=== PATIENT | male | born 1940 | race Caucasian/White ===

== ENCOUNTER 2019-01-04 15:56 | Inpatient (IN) | payer OTHER ==
[~2019-01-04] VITALS: Ht 170.2 cm; Wt 90.7 kg
[2019-01-04 15:57] VITALS: BP 108/53
--- NOTE | 2019-01-04 17:10 | NUR ---
AT THIS TIME, RN CALLED AP ALMENDAREZ, SISTER AND DPPADMA, AND RECIEVED AUTHORIZATION TO TREAT PT. DPOA STATED "WHATEVER YOU NEED TO DO, YOU HAVE MY PERMISSION"
[2019-01-04 17:30] LABS: URINE BILIRUBIN NEGATIVE (Negative); URINE BLOOD TRACE (Negative); URINE CLARITY CLEAR; URINE COLOR YELLOW; URINE GLUCOSE-RANDOM* NEGATIVE (Negative); URINE KETONES NEGATIVE (Negative); URINE LEUKOCYTES-REFLEX NEGATIVE (Negative); URINE NITRITE-REFLEX NEGATIVE (Negative); URINE PROTEIN (DIPSTICK) NEGATIVE (Negative); URINE SPECIFIC GRAVITY 1.015 (1.005-1.035); URINE UROBILINOGEN 0.2 E.U./dl (0.2-1.0)
--- NOTE | 2019-01-04 17:38 | NUR ---
DPOA CALLED AGAIN TO TALK WITH PT, TO SEE IF COULD HELP PT UNDERSTAND WHY TESTING AND LINE/LABS ARE NEEDED. PT STILL REFUSING. RN TALKED WITH DPOA ABOUT POSSIBLY USING A SEDATIVE TO CALM PT AND CONTINUE CARE, DPOA STATED "ANYTHING YOU NEED TO DO IS FINE".
[2019-01-04 17:55] LABS: AMP/METHAMP Negative (Negative); BARBITURATES Negative (Negative); BENZODIAZEPINES Negative (Negative); COCAINE Negative (Negative); METHADONE Negative (Negative); OPIATES Negative (Negative); PCP Negative (Negative)
[2019-01-04 20:25] LABS: HEMATOCRIT 37.8 % (42.0-52.0); HEMOGLOBIN 12.7 gm/dL (14.0-18.0); MCH 30.1 pg (26.0-34.0); MCHC 33.5 g/dL (28.0-37.0); MCV 89.8 fL (80.0-100.0); PLATELET COUNT 210 thou/uL (150-400); RBC 4.21 mil/uL (4.50-6.00); RDW 14.3 % (10.5-14.5)
[2019-01-04 20:58] LABS: ANION GAP 10 mmol/L (7-16); BUN 37 mg/dL (7-18); CALCIUM 9.2 mg/dL (8.5-10.1); CHLORIDE 102 mmol/L (98-107); CO2 31 mmol/L (21-32); CREATININE 1.3 mg/dL (0.7-1.3); GLUCOSE 114 mg/dL (74-106); POTASSIUM 4.6 mmol/L (3.5-5.1); SODIUM 143 mmol/L (136-145)
[2019-01-04 21:04] LABS: ABSOLUTE NEUTROPHILS 9.6 thou/uL (1.4-8.2); ATYPICAL LYMPHS 4 %; PLATELET ESTIMATE NORMAL
[2019-01-04 21:06] LABS: MAGNESIUM 2.1 mg/dL (1.8-2.4); SGOT 19 U/L (15-37); SGPT 24 U/L (30-65); TOTAL BILIRUBIN 0.3 mg/dL (<0.1-1.0); TOTAL PROTEIN 7.7 g/dL (6.4-8.2); TROPONIN-I <0.06 ng/mL (<0.06)
[2019-01-04 21:19] VITALS: BP 142/72
[2019-01-04 21:45] VITALS: BP 128/69
[2019-01-05 03:00] VITALS: BP 135/73
--- NOTE | 2019-01-05 04:20 | NUR ---
ADMITTED TO THE UNIT TO BED 419 FROM ED, ADMITTED WITH DX OF BLE CELLULITIS AND DEMENTIA. NKDA, FULL CODE, HH DIET. ZOSYN RUNNING VIA 20GU IV IN RFA. VSS, ORIENTED TO PERSON ONLY, BLE CELLULITIS NOTED TO HAVE REDNESS, WARM, OPEN BLISTERS. HRR, LUNG SOUNDS CTA, ABD ROUND AND FIRM, NORMOACTIVE BOWEL SOUNDS X 4 Q. EXTREMITIES HAVE NORMAL PULSES. VANCOMYCIN LOADING DOSE ADMINISTERED. NO ADVERSE EFFECTS NOTED.
--- NOTE | 2019-01-05 05:04 | NUR ---
STAFF WENT INTO PT'S ROOM TO REPOSITION PT,HE REFUSED TO BE REPOSITIONED AND CLEANED UP,PT STATED THAT HE WANTS TO BE LEFT ALONE.
--- NOTE | 2019-01-05 08:06 | H ---
[facility] [place] [address] HISTORY AND PHYSICAL Name: DENY FARLEY Room #: 419-P [facility] IN .R.#: [id number] Admission: 01/04/19 Attend Phys: Fanta Lemos MD Discharge: Date of : 42 Report #: [id number] THIS REPORT FOR: //name// CC: Fanta Lemos DATE OF SERVICE: 01/04/2019 HISTORY OF PRESENT ILLNESS: The patient is a 78-year-old male who was admitted to the hospital for increasing swelling and redness of the lower extremities. The patient himself is not able to provide me with any information because of his underlying dementia. On arrival to the hospital, the patient was agitated and he was refusing to have any blood drawn on him, but eventually the patient was given medications to calm him down and we were able to start antibiotics treatment for him. PAST MEDICAL HISTORY: Significant for depression, myasthenia gravis without exacerbation, dementia with behavioral disturbances, benign prostatic hypertrophy, abdominal hernia without any obstruction, delirium. MEDICATIONS: The patient's medications include calcium with vitamin D one tablet daily, citalopram 10 mg daily, Depakote 500 mg twice a day, Aricept 10 mg daily, vitamin D 1 capsule every 7 days, furosemide 80 mg twice a day, Namenda 10 mg twice a day, potassium chloride to be given 20 mEq twice a day, risperidone 0.5 mg twice a day. ALLERGIES: No known drug allergies. SOCIAL HISTORY: The patient lives in a [facility] facility. No recent history of smoking, alcohol use or drug use. FAMILY HISTORY: Noncontributory. REVIEW OF SYSTEMS: The patient is alert, awake, but he does not know where he is and he is not able to tell me anything about himself. PHYSICAL EXAMINATION: VITAL SIGNS: On arrival to the hospital, the patient's temperature was 36.9, pulse 79, respirations 16, blood pressure 108/53. HEAD AND NECK: Unremarkable. NECK: Supple. LUNGS: Clear to auscultation. CARDIAC: S1, S2. ABDOMEN: Benign. Bowel sounds were positive. EXTREMITIES: +3 edema bilaterally. The patient has some erythema on the lower extremities that could be due to infection or could be due to venous stasis. [address] [address] HISTORY AND PHYSICAL Name: DENY FARLEY Room #: 419-P [facility] IN ..#: [id number] Admission: 01/04/19 Attend Phys: Fanta Lemos MD Discharge: Date of : 42 Report #: [id number] LABORATORY DATA: On arrival to the hospital, 12-lead EKG showed sinus rhythm with a probable left atrial enlargement. Urinalysis showed trace of blood, but otherwise negative. Chest x-ray showed no acute cardiopulmonary disease. Drug screen was negative. Venous Doppler ultrasound of the lower extremities showed no evidence of deep vein thrombosis within the bilateral lower extremities. Alcohol level 10. Lactic acid 1.9. BNP 146. CBC showed a white count of 13.0, hemoglobin 12.7, hematocrit 37.8, platelet count 210, neutrophils are 74%. The patient's sodium is 143, potassium 4.6, chloride 102, bicarbonate 31, BUN 37, creatinine 1.3, glucose 114, AST 19, total bilirubin 0.3, calcium 9.2, magnesium 2.1, ALT 24 and albumin was 3.0. Troponin less than 0.06. CT of the abdomen and pelvis showed no abdominal mass or lymphadenopathy. Multiple small bilateral inguinal lymph nodes, the largest on the left measuring up to 13 mm short axis, likely reactive, bilateral nonobstructing nephrolithiasis and right renal cyst. ASSESSMENT AND PLAN: 1. Edema of the lower extremities. 2. Cellulitis of the lower extremities. 3. Dementia with behaviors. The patient will be admitted to the hospital with the above-mentioned diagnoses. I will go ahead and refill the patient's medications. We have to start Lasix IV, to have Tubigrip to the lower extremities. We will continue monitoring the patient during his stay in the hospital. We will monitor the patient's labs very closely. <ELECTRONICALLY SIGNED> By: Fanta Lemos MD 01/05/19 0806 0737 0802 Fanta Lemos MD /nt
--- NOTE | 2019-01-05 10:44 | EKG ---
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
--- NOTE | 2019-01-05 15:14 | 2DMMODE ---
[facility] [address] [place] [address] 2 D/M-MODE ECHOCARDIOGRAM Name: MIGUELITODENY Room #: 419-P [facility] IN [facility]#: [id number] Admission: 01/04/19 Attend Phys: Fanta Lemos MD Discharge: Date of : 42 Date of Service: 01/05/19 1513 Report #: [id number] THIS REPORT FOR: //name// APPROVED REPORT Study performed: 01/05/2019 11:09:40 EXAM: Comprehensive 2D, Doppler, and color-flow Echocardiogram Patient Location: In-Patient Room #: 419 Status: routine BSA: 2.02 HR: 75 bpm BP: 135/73 mmHg Other Information Study Quality: Adequate Technically limited study due to inability to position patient. 2D Dimensions IVSd: 14.54 (7-11mm) LVOT Diam: 21.54 (18-24mm) LVDd: 48.37 mm PWd: 11.63 (7-11mm) Ascending Ao: 29.92 (22-36mm) LVDs: 26.51 (25-40mm) Left Atrium: 34.63 (27-40mm) Aortic Root: 31.56 mm Aortic Valve AoV Peak Mat.: 1.40 m/s AO Peak Gr.: 7.37 mmHg LVOT Max P.61 mmHg AO Mean Gr.: 4.95 mmHg LVOT Mean P.29 mmHg AO V2 Mean: 1.06 m/s LVOT Max V: 1.05 m/s AO V2 VTI: 29.36 cm LVOT Mean V: 0.70 m/s CAMERON (VTI): 2.65 cm2 LVOT V1 VTI: 21.36 cm CAMERON Vmax: 2.74 cm2 SV (LVOT): 77.81 mL Mitral Valve E/A Ratio: 1.3 MV Decel. Time: 171.46 ms MV E Max Mat.: 0.86 m/s MV A Mat.: 0.67 m/s MV PHT: 49.72 ms Pulmonary Valve [facility] [address] [place] [address] 2 D/M-MODE ECHOCARDIOGRAM Name: DENY FARLEY Room #: 419-P [facility]#: [id number] Admission: 01/04/19 Attend Phys: Fanta Lemos MD Discharge: Date of : 42 Date of Service: 01/05/19 1513 Report #: [id number] PV Peak Mat.: 1.38 m/s PV Peak Gr.: 7.57 mmHg Pulmonary Vein P Vein S: 0.32 m/s P Vein A: 0.28 m/s P Vein D: 0.45 m/s P Vein A Dur.: 110.7 msec P Vein S/D Ratio: 0.71 Tricuspid Valve TR Peak Mat.: 2.79 m/s RAP Estimate: 8.00 mmHg TR Peak Gr.: 31.20 mmHg RVSP: 39.00 mmHg Left Ventricle The left ventricle is normal size. There is normal LV segmental wall motion. Mild concentric left ventricular hypertrophy. The left ventricular systolic function is normal. The left ventricular ejection fraction is within the normal range. LVEF is >55%. Grade II - pseudonormal filling dynamics. Right Ventricle The right ventricle is normal size. There is normal right ventricular wall thickness. The right ventricular systolic function is normal. Atria Left atrium is mildly dilated. Right atrium is borderline dilated. Aortic Valve The Aortic valve is sclerotic. Trace aortic regurgitation. There is no aortic valvular stenosis. Mitral Valve The mitral valve is normal in structure. Trace mitral regurgitation. No evidence of mitral valve stenosis. There is no evidence of mitral valve prolapse. Tricuspid Valve The tricuspid valve is not well visualized. There is no tricuspid valve stenosis. Trace tricuspid regurgitation. Pulmonic Valve Pulmonic valve is not well visualized. Trace pulmonic regurgitation. Great Vessels The aortic root is normal in size. IVC [place] [address] 2 D/M-MODE ECHOCARDIOGRAM Name: DENY FARLEY Room #: 419-P [facility] IN M.R.#: [id number] Admission: 01/04/19 Attend Phys: Fanta Lemos MD Discharge: Date of : 42 Date of Service: 01/05/19 1513 Report #: [id number] >50% with inspiration. Pericardium There is no pericardial effusion. <Conclusion> The left ventricle is normal size. Mild concentric left ventricular hypertrophy. The left ventricular systolic function is normal. Grade II - pseudonormal filling dynamics. The right ventricle is normal size. Left atrium is mildly dilated. The Aortic valve is sclerotic. Trace mitral regurgitation. Trace tricuspid regurgitation. <ELECTRONICALLY SIGNED> By: Chris Peña MD 01/05/19 1513 151 1513 Chris Peña MD /INF
[2019-01-05 15:30] VITALS: BP 124/65
--- NOTE | 2019-01-05 19:48 | NUR ---
ASSUMED CARE OF PT AT 0700. ASSESSMENT COMPLETED. ALERT, ONLY ORIENTED TO SELF. PT CONFUSED, FORGETFUL, HX DEMENTIA. PT MAKES INAPPROPRIATE COMMENTS FORWARDS FEMALE STAFF AND "WHISTLES" C/O BILATERAL LEG CELLULITIS - RED, WARM, EDEMATOUS, WEEPING. CLEANSED WITH WOUND CLEANSER, ABD, KYRLEX, AND DARA WRAP IN PLACE. PT C/O RIGHT FOREARM IV PAIN, REDNESS AT SITE NOTED. IV D/C, NEW IV PLACED RIGHT HAND. PT UP TO CHAIR WITH X2 ASSIST, SOME WEAKNESS NOTED. SOME REDNESS NOTED ON NOSE FROM GLASSES, PT REFUSED TO TAKE THEM OFF DURING THE DAY. PT IN STABLE CONDITION. DENIES PAIN. END OF SHIFT.
[2019-01-05 20:00] VITALS: BP 146/64
[2019-01-06 04:30] VITALS: BP 125/60
--- NOTE | 2019-01-06 04:45 | NUR ---
PT DID NOT SLEEP WELL THIS NIGHT,SPENT MOST OF HIS TIME WATCHING TV.PT WAS OBSERVED USING INAPPRIOPRIATE WORDS,WHISLING TO STAFF FOR ASSISTANCE INSTEAD OF USING CALL LIGHT,NEEDED CONSTANT REMINDER TO USE HIS CALL LIGHT.CELLULITIS TO INOCENTE LOWER EXT COVERED WITH WITH KERLIX/ABD/DARA WRAP.CALL LIGHT WITHIN REACH.
[2019-01-06 07:50] VITALS: BP 130/69
--- NOTE | 2019-01-06 10:00 | NUR ---
ASSUMED CARE @ 19:15, SITTING UP IN CHAIR IN ROOM, WATCHING TV. ASSESSMENT COMPLETE, VS STABLE. RELUCTENTLY AGREED TO LAY IN BED TO INFUSE VANCO. X2 ASSIST TO TRANSFER FROM CHAIR TO BED. AWAKE WITH LIGHT ON WATCHNG TV DURING THE NOC. UP TO TOILET X3, REQUIRES X2 ASSIST TO TRANSFER IN AND OUT OF BED. BM X 1. REFUSES TO USE URINAL. REPEATEDLY WHISTLING INSTEAD OF USING CALL LIGHT. COUNSELED ON USE OF CALL LIGHT AND NOT WHISTLING.
--- NOTE | 2019-01-06 13:55 | NUR ---
PATIENTS VANCO TROUGH = 13 CALLED [facility] IN [facility] WHO IS DOSING SHE STATED TO GIVE CURRENT DOSE OF VANCO IV.
--- NOTE | 2019-01-06 16:00 | H ---
[place] [address] HISTORY AND PHYSICAL Name: DENY FARLEY Room #: 419-P ADM IN M.R.#: [id number] Admission: 01/04/19 Attend Phys: Fanta Lemos MD Discharge: Date of : 42 Report #: [id number] THIS REPORT FOR: //name// CC: Fanta Lemos DATE OF SERVICE: 01/05/2019 HISTORY OF PRESENT ILLNESS: This patient was admitted from his facility, [facility]. The patient has been anxious and irritable. He does not realize he was transferred here from a facility. He is insisting that the apartment he was renting had certainly "changed the locks on me." He notes he paid a little bit extra a few years back to prevent a rent increase and then "they increased it anyway." He is not aware that he has cellulitis. PAST PSYCHIATRIC HISTORY: The patient has history of dementia with behavioral disturbance. PAST MEDICAL HISTORY: Myasthenia gravis, benign prostatic hypertrophy. SOCIAL HISTORY: He is currently in a alf facility, [facility]. His sister is his healthcare power of title attorney. No alcohol or drug use. ALLERGIES: No known medication allergies. CURRENT MEDICATIONS: Include enoxaparin, furosemide, Risperdal 0.5 twice daily, Namenda 10 mg twice daily, Depakote 500 twice daily, Celexa 20 daily, ondansetron p.r.n., acetaminophen p.r.n. LABORATORY DATA: WBC 13.0, hemoglobin 12.7, hematocrit 37.8. Chemistry panel had a creatinine of 1.3, BUN of 37, other values largely within normal limits. COGNITIVE EXAMINATION: He is alert to person, but is not oriented to place or time. He does not know his medical problems. He is not aware of the medications he is receiving. MENTAL STATUS EXAMINATION: male, significant lower extremity edema with cellulitis. Normal rhythm of speech. He is articulate. He gets a bit irritable and hyperactive at times. No suicidal ideation, no homicidal ideation. No hallucinations. He appears to be delusional. Insight and judgment impaired. DIAGNOSES: Dementia with behavioral disturbance, major depressive disorder per history. RECOMMENDATIONS: I would like to check a valproic acid level to determine [address] [place] [address] HISTORY AND PHYSICAL Name: DENY FARLEY Room #: [address] [place] [address] [place] [facility].#: [id number] Admission: 01/04/19 Attend Phys: Fanta Lemos MD Discharge: Date of : 42 Report #: [id number] whether or not this can or should be increased. The dose of Risperdal he is receiving is quite low and that can be increased as well. I will start him on melatonin for insomnia as this can be useful, especially in delirium where it may restore the normal circadian rhythm. The durable power of title attorney should be active and he lacks capacity to sign out AMA. <ELECTRONICALLY SIGNED> By: Isaias Bro MD 01/06/19 1600 1542 1552 Isaias Bro MD /nt
[2019-01-06 20:25] VITALS: BP 121/55
[2019-01-07 05:25] VITALS: BP 150/61
--- NOTE | 2019-01-07 08:13 | NUR ---
ASSESMENT COMPLETED. VSS. OX1. COOPERATIVE THIS AM. VOIDS PER URINAL. DRESSING TO BLE CDI. MEDS GIVEN ORDERED- TOLERATED WELL. PT RESTING IN BED AT THIS TIME. NO CONCERSN VOICED. WILL CONT. TO MONITOR.
--- NOTE | 2019-01-07 12:15 | NUR ---
WOUND CONSULT: PT. WAS SEEN TODAY BY DR. ARMAS AND MYSELF. PT. HAS BILATERAL LOWER EXTREMITY CELLULITIS WITH ULCERATIONS TO BOTH IN RELATION TO THIS. RECOMMENDATIONS: GENT OINT, XERO, ABD, KERLIX AND DARA, CHANGE DAILY PT. AND STAFF NURSE WERE INSTRUCTED ON PLAN OF CARE.
--- NOTE | 2019-01-07 14:43 | NUR ---
PT UP TO BATHROOM WITH 1 ASSIST-GAITBELT/WALKER- HAD TO REINFORCE- PT REFUSING TO USE WALKER. PT REFUSING MEDS THIS AFTERNOON- AGREED TO TAKE VANCO AND DRESSING CHANGES- EDUCATION GIVEN. PT EASILY AGITATED. PT WORKING WITH PHYSICAL THERAPY AT THIS TIME. WILL CONT. TO MONITOR.
--- NOTE | 2019-01-07 16:34 | NUR ---
PT ADMITTED RELATED TO BLE CELLULITIS, DEMENTIA. CM REVIEWED CHART AND SPOKE WITH CARE TEAM. CM MET WITH PT AT BEDSIDE THIS DAY. PT IS A&O X3. CM ROLE INTRODUCED. 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 CM CALLED PT'S SISTER AP AND SHE CONFIRMED THAT ABOVE SHE INDICATED THAT PT RESIDES IN THE [place] AT THE FACILITY. SHE INDICATED THAT SHE HOPES TO BE ABLET TO GET PT INTO THE [facility] [place] BUT THAT SHE ANTICPATES THAT PT WILL RETURN TO [facility] ONCE MEDICALLY STABLE. CM TO FOLLOW INDICATED WITH DC PLANNING. CLINICAL UPDATE SENT TO THE FACILITY.
--- NOTE | 2019-01-07 16:43 | NUR ---
PT. RESIDES AT [facility]. FAXED CLINICAL UPDATE TO FACILITY AND SPOKE WITH RILEY IN ADM. SHE RECEIVED UPDATE. DCP TO FOLLOW.
--- NOTE | 2019-01-07 16:57 | NUR ---
PT TRANSFERRED TO [facility] REPORT CALLED IN.
--- NOTE | 2019-01-07 17:14 | NUR ---
REPORT GIVEN BY NURSE FEBRUARY ON 4E. PATIENT TRANSFERRED TO [facility] FROM [facility] AT 1705. PATIENT SITTING ON SIDE OF BED, WITH CALL LIGHT IN REACH, AND BEVERAGE ON BEDSIDE TRAY.
[2019-01-07 17:15] VITALS: BP 133/64
[2019-01-07 19:55] VITALS: BP 121/64
--- NOTE | 2019-01-08 05:53 | NUR ---
PATIENT ALERT AND ORIENTED X2-3. AT BEGINNING OF SHIFT WAS MORE COHERENT THAN LATER. REFUSED ENOXAPARIN. UP TO BATHROOM SEVERAL TIMES. AT BEGINNING OF SHIFT WAS GETTING SELF UP AND DOWN FROM CHAIR BUT WITHIN A COUPLE OF HOURS WAS ASKING FOR HELP TO GET UP. AT TIMES EVEN HELP TO SIT BACK DOWN. MOST OF THE TIME HE JUST WANTED TO STAND UP. DENIES PAIN. WHISTLES FREQUENTLY BUT WHISTLES FOR THE NURSE WITH A DIFFERENT WHISTLE. HAS SAT UP IN CHAIR, NOT RECLINER, ALL NIGHT. ENCOURAGED TO GO TO BED BUT REFUSED. PATIENT DOES DOSE OFF ON CHAIR BUT HAS NOT FALLEN OFF CHAIR. PATIENT AWAKE MOST OF NIGHT.
[2019-01-08 08:05] VITALS: BP 132/68
--- NOTE | 2019-01-08 08:12 | NUR ---
ASSUMED PT CARE AT 0700. ASSESSMENT COMPLETED AND IS CHARTED. PT UP IN CHAIR. AWAKE, ALERT TO PERSON ONLY. PT IS CONFUSED AND DOES NOT USE CALL LIGHT APPROPRIATELY. PT WHISTLES AND YELLS FOR HELP. HE DOES NOT TRY TO GET UP ON HIS OWN,HOWEVER. CHAIR ALARM IS IN PLACE FOR SAFETY. ENCOURAGED PT TO USE THE CALL LIGHT WHEN HE NEEDS SOMETHING. PT DENIES PAIN AT THIS TIME, STATES HE FEELS FINE. LEGS ARE WRAPPED BUT ARE EDEMETOUS. TEACHING DONE ON ELEVATING LEGS TO REDUCE SWELLING. PT AGREED TO GET BACK IN BED AFTER BREAKFAST AND ELEVATE LEGS. BS ARE HYPOACTIVE AND ABDOMEN IS HARD AND ROUND. WILL REQUEST STOOL SOFTENER. OTHERWISE WILL CONTINUE CURRENT CARE.
--- NOTE | 2019-01-08 10:15 | NUR ---
SW reviewed chart and spoke with nursing. Pt was transferred to [facility] from and is progressing towards goals for discharge. Wound care consult ordered. Pt is on IV abx. Plan is for pt to return to [facility] when medically stable. SANDRA is following to assist as needed with discharge planning.
--- NOTE | 2019-01-08 13:45 | NUR ---
WOUND FOLLOW UP: PT. WAS SEEN TODAY BY DR. ARMAS AND MYSELF. PT. LEGS ARE C/D/I AT THIS TIME. PT. IS RESTING COMFORTABLY. RECOMMENDATIONS: CONTINUE WITH CURRENT PLAN OF CARE. PT. AND STAFF NURSE WERE INSTRUCTED ON PLAN OF CARE.
--- NOTE | 2019-01-08 14:01 | NUR ---
PT REFUSES TO GET INTO BED TO ELEVATE LEGS. ADVANCED MANAGER ASSISTED PT TO RECLINER TO ELEVATE LEGS. PT AGREED TO THIS. PT CONTINUES TO REFUSE MEDS TODAY DESPITE MULTIPLE ATTEMPTS. ATTEMPTED TO PUT MEDS IN PUDDING AND PT STILL REFUSED. AT THIS TIME NO PO MEDS HAVE BEEN ADMINISTERED. PT IS CURRENTLY ASLEEP IN CHAIR. PT DOES CONTINUE YELL AND WHISTLE WHEN WANTING UP. DOES NOT TRY TO GET UP BY SELF. WILL CONTINUE WITH CURRENT CARE.
--- NOTE | 2019-01-08 17:54 | NUR ---
PT CONTINUES TO REFUSE MEDICATIONS. STATES HE DOES NOT TAKE ANY OF THESE MEDICATIONS AT HOME.
[2019-01-08 19:07] VITALS: BP 116/56
--- NOTE | 2019-01-09 05:08 | NUR ---
PATIENT ALERT AND ORIENTED TO PERSON AND SOMETIMES PLACE. GETS UP AND DOWN IN CHAIR. CALLS FOR HELP FREQUENTLY BUT IS ENCOURAGEDTO TO GET UO ON OWN TO STRENGHTEN MUSCLES. WHISTLES WHEN HE WANTS ATTENTION. SHOWED HOW TO WORK CALL LIGHT. SLEEPS IN CHAIR. SLEPT LITTLE THIS SHIFT. DENIES PAIN.
--- NOTE | 2019-01-09 08:28 | HC ---
[facility] [place] [address] CONSULTATION Name: DENY FARLEY Room #: 221-P [facility] IN ..#: [id number] Admission: 01/04/19 Attend Phys: Fanta Lemos MD Discharge: Date of : 42 Report #: [id number] THIS REPORT FOR: //name// CC: Fanta Lemos DATE OF SERVICE: 01/07/2019 CHIEF COMPLAINT: Cellulitis, bilateral lower extremities. HISTORY OF PRESENT ILLNESS: This is a 78-year-old male patient who was admitted to the hospital because of increased swelling and redness of his lower extremities. He is a little bit confused and has apparently a history of dementia. He is complaining of some pain in his legs. He is a little bit irritable about us trying to look at them today. PAST MEDICAL HISTORY: Prior history of myasthenia gravis, dementia with behavioral disturbances, depression, benign prostatic hypertrophy and history of delirium. MEDICATIONS: Include calcium with vitamin D, citalopram, Depakote, Aricept, vitamin D, furosemide, Namenda, potassium chloride and risperidone. ALLERGIES: None. SOCIAL HISTORY: The patient lives in a [facility] facility. No history of smoking or alcohol use. FAMILY HISTORY: Noncontributory. REVIEW OF SYSTEMS: Really not obtainable. The patient is a little bit belligerent and does note pain in his legs, but additional information cannot be obtained. PHYSICAL EXAMINATION: VITAL SIGNS: At this time include temperature 98.3, pulse rate 69, respiratory rate of 20, blood pressure 133/64. GENERAL: This is a somewhat chronically ill-appearing male patient who appears to be in minimal distress. HEENT: Head is normocephalic. Nose and throat are clear. NECK: Supple. LUNGS: Clear. ABDOMEN: Soft. EXTREMITIES: Demonstrates moderate erythema and swelling to both lower extremities, I am able to palpate distal pulses. CLINICAL IMPRESSION: [facility] [address] [place] [address] CONSULTATION Name: DENY FARLEY Room #: 221-P [facility] IN [place].#: [id number] Admission: 01/04/19 Attend Phys: Fanta Lemos MD Discharge: Date of : 42 Report #: [id number] 1. Cellulitis, bilateral lower extremities. 2. Lymphedema, bilateral lower extremities. 3. Dementia with some behavioral disturbance. RECOMMENDATIONS: At this point in time, we will recommend empiric antibiotic therapy. We will recommend gentamicin to the few areas that are ulcerated and then compression with Kerlix, Caden wrap bilaterally and elevation of the lower extremities. He will need aggressive nutritional support to maximize wound healing. Continue his current other medications. I appreciate being asked to see him in consultation. <ELECTRONICALLY SIGNED> By: Pablito Caba MD 01/09/19 0828 1831 0054 Pablito Caba MD /nt
[2019-01-09 08:41] VITALS: BP 99/58
--- NOTE | 2019-01-09 10:42 | NUR ---
PATIENT LIKELY TO DC TODAY TO GO TO [facility], DP CALLED RILEY IN ADMISSIONS AT , HAD TO LEAVE MESSAGE INQUIRING IF THEY HAVE AUTH AND LETTING HER KNOW HE MAY DC TODAY, PLS CALL DP. DP ALSO SENT UPDATES AND ANOTHER FACESHEET WITH INSURANCE INFORMATION. DP TO FOLLOW UPL.
--- NOTE | 2019-01-09 13:35 | NUR ---
SNF referral discussed with the pt's sister Sophia via phone. Pt was sleepy and not able to participate in dc planning discussion this morning. The care team is recommending a SNF stay for wound care and therapy vs returning to Ind[facility] living at [facility]. They have a bed for him tomorrow but will need to try and get auth from his [employer] cross medicare plan. They are not in network but will try since he is a resident there. Pt's sister aware that pt refuses cares at times. She reports that he seems more depressed and confusion over the past few months. She is agreeable to consider other snfs if [facility] can't get auth from the insurance. He may also need to consider transition to senior care care medicaid pending in the near future if he can not recover enough to return to [facility] living. [place] as well as house[place]. Will await imput from admissions at [facility] regarding the ins auth. Possible dc tomorrow to SNF. Care team updated. Will follow.
--- NOTE | 2019-01-09 14:21 | NUR ---
ASSUMED CARE OF PATIENT THIS MORNING. PATIENT IS A&O TO SELF AND SITUATION. HE AMBULATES WITH SBA/UP AD LUANNE. HE HAS AN UNSTEADY GAIT AT TIMES AND WHISTLES FOR ASSISTANCE FOR HELP TO THE BATHROOM. HE TOOK HIS MORNING MEDS WITHOUT REFUSAL. BILATERAL LOWER EXTREMITY CELLULITIS AND EDEMATOUS. PATIENT HAD CLEAR BREATH SOUNDS AND ACTIVE BOWEL SOUNDS, NO ABNORMAL ASSESSMENT FINDINGS. PATIENT WILL POSSIBLY BE DISCHARGED TOMORROW BUT AWAITING INSURANCE AUTHORIZATION FOR SNF AT [facility] INSTEAD OF [facility]. PATIENT IS CURRENTLY SLEEPING IN CHAIR.
--- NOTE | 2019-01-09 19:49 | NUR ---
I AGREE WITH NURSING ASSESSMENT DONE BY FARNAZ/JAKE.
[2019-01-09 20:34] VITALS: BP 117/63
--- NOTE | 2019-01-10 05:57 | NUR ---
PATIENT ALERT AND ORIENTED TO PERSON, PLACE AT TIMES, AND SITUATION AT TIMES. VERY FORGETFUL AND CONFUSED. NEED TO REPEAT THINGS TO PATIENT SEVERAL TIMES. HAS ASKED SEVERAL TIMES WHEN HE IS GOING HOME. WAS TOLD SEVERAL TIMES. EXPLAINED SEVERAL TIMES ABOUT HIS CALL LIGHT. PATIENT WHISTLES FOR HIS NURSE BUT SOMETIMES HE JUST WHISTLES, THIS CAN BE CONFUSING TO THE NURSE. PATIENT LIKES HELP TO GET UP BUT WHEN ENCOURAGED HE CAN AND WILL GET UP BY SELF. WAS TOLD HE WOULD NOT HAVE ANY HELP TO GET UP AT HOME AND NEEDED TO BUILD HIS STRENGHT UP AND NEED TO DO HIMSELF. SLEPT VERY LITTLE THIS SHIFT. PATIENT SLEEPS IN CHAIR.
[2019-01-10 08:15] VITALS: BP 117/65
[2019-01-10] MEDS ORDERED: CELEXA 20 MG TA20 MG PO (09:41)
[2019-01-10] MEDS ORDERED: RISPERDAL 1 MG T1 MG PO (09:41)
[2019-01-10] MEDS ORDERED: COLACE 100 MG100 MG PO (09:41)
[2019-01-10] MEDS ORDERED: MELATONIN5 M1 PO (09:41)
[2019-01-10] MEDS ORDERED: NAMENDA 5 MG TAB5 M1 PO (09:41)
[2019-01-10] MEDS ORDERED: DOXYCYCLINE HYC50 MG PO (09:41)
[2019-01-10] MEDS ORDERED: K-DUR 20 MEQ T20 MEQ PO (09:41)
[2019-01-10] MEDS ORDERED: GENTAMICIN 0.1%15 G2 TOP (09:41)
[2019-01-10] MEDS ORDERED: DEPAKOTE ER500 MG PO (09:41)
[2019-01-10] MEDS ORDERED: LASIX 40 MG TAB40 M1 PO (09:41)
--- NOTE | 2019-01-10 10:31 | NUR ---
DISCHARGE ORDERS RECEIVED. PATIENT DISCHARGING TO [facility]ILL[facility]IT. CHART COPIED PER TELEVISION ANCHOR. ORDERS FAXED TO [facility]MISS[facility], VERIFIED RECEIVED. [facility] TO TRANSPORT PATIENT, 1630 HOUS. SISTER AP CALLED, VOICE MAIL LEFT FOR HER TO NOTIFY OF DISCHARGE PLAN AND TIME. UNIT RN NOTIFIED AND CONTACT NUMBER PROVIDED FOR REPORT. UNIT CM/SW AWARE.
--- NOTE | 2019-01-10 11:54 | NUR ---
DISCHARGE NOTE: SW reviewed chart and spoke with nursing. [facility] is medically [facility]. Insurance authorization obtained. Bunny Padilla to pickle maker at at 1630. airport planner coordinated. Chart copy ordered. No SW needs identified at this time, but is available to assist should needs arise.
--- NOTE | 2019-01-10 12:42 | NUR ---
WOUND FOLLOW UP: PT. WAS SEEN TODAY BY DR. RAY AND MYSELF. PT. LEGS ARE CLINICALLY BETTER TODAY. PT. REPORTS LESS PAIN WITH DRESSING CHANGES. RECOMMENDATIONS: CONTINUE WITH CURRENT PLAN OF CARE. PT. AND STAFF NURSE WERE INSTRUCTED ON PLAN OF CARE.
--- NOTE | 2019-01-10 15:52 | NUR ---
DISCHARGE: REPORT CALLED TO [facility], [facility], FAMILIAR W/PT, ANSWERED HER QUESTIONS, WILL SEND URINAL WITH PT HES TAKING LASIX. LIMBS WRAPPED, IV REMOVED, PT MEETING HIS SISTER AT FACILITY. HE'S READY TO BE D/C'D PER HIS REPORT
== END 2019-01-10 17:15 | DRG 603 ==
LOC: ER 15:56 → EROBS 18:23 → SICU 18:23 → 4E 18:23 → SICU 01-07 17:14
PROVIDERS: Emergency Medicine; ADMIT Internal Medicine
DX: L03.116 Cellulitis of left lower limb (principal); G93.40 Encephalopathy, unspecified; F03.91 Unspecified dementia, unspecified severity, with behavioral disturbance; L03.115 Cellulitis of right lower limb; F32.9 Major depressive disorder, single episode, unspecified; N40.0 Benign prostatic hyperplasia without lower urinary tract symptoms; R41.0 Disorientation, unspecified; G47.00 Insomnia, unspecified; I87.2 Venous insufficiency (chronic) (peripheral); I89.0 Lymphedema, not elsewhere classified; Z79.899 Other long term (current) drug therapy
CPT/HCPCS: 10084; 15002

== ENCOUNTER 2019-03-27 14:59 | Emergency (ER) | payer OTHER ==
[~2019-03-27] VITALS: Ht 170.2 cm; Wt 131.5 kg
[~2019-03-27 14:59] MED LIST: CELEXA 20 MG TA20 MG PO; COLACE 100 MG100 MG PO; DEPAKOTE ER500 MG PO; DOXYCYCLINE HYC50 MG PO; GENTAMICIN 0.1%15 G2 TOP; K-DUR 20 MEQ T20 MEQ PO; LASIX 40 MG TAB40 M1 PO; MELATONIN5 M1 PO; NAMENDA 5 MG TAB5 M1 PO; RISPERDAL 1 MG T1 MG PO
[2019-03-27 15:45] LABS: ABSOLUTE NEUTROPHILS 8.9 thou/uL (1.4-8.2); BASOPHILS 0.4 % (0.0-2.0); EOSINOPHILS 2.1 % (0.0-3.0); HEMATOCRIT 38.4 % (42.0-52.0); HEMOGLOBIN 12.6 gm/dL (14.0-18.0); LYMPHOCYTES 12.3 % (24.0-44.0); MCH 29.8 pg (26.0-34.0); MCHC 32.9 g/dL (28.0-37.0); MCV 90.5 fL (80.0-100.0); MONOCYTES 9.2 % (1.0-8.0); PLATELET COUNT 245 thou/uL (150-400); RBC 4.24 mil/uL (4.50-6.00); RDW 15.1 % (10.5-14.5); WBC 11.7 thou/uL (4.0-11.0)
[2019-03-27 15:58] LABS: ANION GAP 7 mmol/L (7-16); BUN 34 mg/dL (7-18); CALCIUM 9.3 mg/dL (8.5-10.1); CHLORIDE 103 mmol/L (98-107); CO2 33 mmol/L (21-32); CREATININE 1.4 mg/dL (0.7-1.3); GLUCOSE 128 mg/dL (74-106); POTASSIUM 4.8 mmol/L (3.5-5.1); SODIUM 143 mmol/L (136-145)
[2019-03-27 16:08] LABS: TROPONIN-I <0.06 ng/mL (<0.06)
[2019-03-27 19:24] LABS: BE(vivo) 3.2 mmol/L (-2 to +3); HCO3 27.4 mmol/L (22.0-26.0); PCO2 40.5 mmHg (35.0-45.0); PO2 65.6 mmHg (80.0-100.0); pH 7.448 (7.360-7.450); sO2 93.7 % (92.0-98.0)
[2019-03-27 20:02] VITALS: BP 140/74
--- NOTE | 2019-03-28 07:14 | EKG ---
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: SYDNEE : 1940 Requested By: Rodrigo Kelsey Order Number: [id number] MD: Eddie Maldonado Measurements Intervals [place] Rate: 79 P: WI: QRS: 32 QRSD: 118 T: 54 QT: 441 QTc: 506 Interpretive Statements Sinus rhythm Right ventricular conduction delay Compared to ECG 01/04/2019 17:05:58 No significant change was found Electronically Signed On 03-28-2019 7:13:51 CDT by Eddie Maldonado [email or web address] ��������������������������������������������� <ELECTRONICALLY SIGNED> ���������������������������������������� By: Eddie Maldonado MD, [facility] ��������������������������������������������� 03/28/19 0713 1542 1542 Eddie Maldonado MD, FACC /EPI
== END 2019-03-27 20:48 ==
LOC: ER 14:59
PROVIDERS: Emergency Medicine
DX: R06.00 Dyspnea, unspecified (principal); F03.90 Unspecified dementia, unspecified severity, without behavioral disturbance, psychotic disturbance, mood disturbance, and anxiety

== ENCOUNTER 2019-04-02 15:09 | Inpatient (IN) | payer OTHER ==
[~2019-04-02] VITALS: Ht 170.2 cm; Wt 121.1 kg
[2019-04-02 15:09] VITALS: BP 131/52
[2019-04-02 15:26] LABS: URINE BILIRUBIN NEGATIVE (Negative); URINE BLOOD TRACE (Negative); URINE CLARITY CLEAR; URINE COLOR YELLOW; URINE GLUCOSE-RANDOM* NEGATIVE (Negative); URINE KETONES NEGATIVE (Negative); URINE LEUKOCYTES-REFLEX NEGATIVE (Negative); URINE NITRITE-REFLEX NEGATIVE (Negative); URINE PROTEIN (DIPSTICK) NEGATIVE (Negative); URINE UROBILINOGEN 0.2 E.U./dl (0.2-1.0)
[2019-04-02 15:26] LABS: ABSOLUTE NEUTROPHILS 6.1 thou/uL (1.4-8.2); BASOPHILS 1.1 % (0.0-2.0); EOSINOPHILS 6.5 % (0.0-3.0); HEMATOCRIT 36.5 % (42.0-52.0); HEMOGLOBIN 12.2 gm/dL (14.0-18.0); LYMPHOCYTES 23.2 % (24.0-44.0); MCH 30.3 pg (26.0-34.0); MCHC 33.5 g/dL (28.0-37.0); MCV 90.4 fL (80.0-100.0); MONOCYTES 11.5 % (1.0-8.0); PLATELET COUNT 218 thou/uL (150-400); POLYS 57.7 % (36.0-66.0); RBC 4.04 mil/uL (4.50-6.00); RDW 15.5 % (10.5-14.5); WBC 10.5 thou/uL (4.0-11.0)
[2019-04-02 15:33] LABS: AMP/METHAMP Negative (Negative); BARBITURATES Negative (Negative); BENZODIAZEPINES Negative (Negative); COCAINE Negative (Negative); METHADONE Negative (Negative); OPIATES Negative (Negative); PCP Negative (Negative)
[2019-04-02] MEDS ORDERED: TYLENOL EXTRA500 MG PO (15:37)
[2019-04-02] MEDS ORDERED: ARICEPT 5 MG TAB5 MG PO (15:38)
[2019-04-02] MEDS ORDERED: EUCERIN CREME57 GM TOP (15:38)
[2019-04-02] MEDS ORDERED: LASIX 80 MG TAB80 MG PO (15:39)
[2019-04-02] MEDS ORDERED: GLYCOLAX119 GM PO (15:39)
[2019-04-02] MEDS ORDERED: IPRAT-ALBUT 0.5-3 ML INH (15:40)
[2019-04-02] MEDS ORDERED: TRAZODONE HCL50 MG PO (15:41)
[2019-04-02 15:42] LABS: ANION GAP 8 mmol/L (7-16); BUN 34 mg/dL (7-18); CALCIUM 8.7 mg/dL (8.5-10.1); CHLORIDE 104 mmol/L (98-107); CO2 30 mmol/L (21-32); CREATININE 1.4 mg/dL (0.7-1.3); GLUCOSE 111 mg/dL (74-106); POTASSIUM 4.3 mmol/L (3.5-5.1); SODIUM 142 mmol/L (136-145)
[2019-04-02 15:47] LABS: ALBUMIN 2.8 g/dL (3.4-5.0); SGOT 16 U/L (15-37); SGPT 29 U/L (30-65); TOTAL BILIRUBIN 0.2 mg/dL (<0.1-1.0); TOTAL PROTEIN 7.5 g/dL (6.4-8.2); TROPONIN-I <0.06 ng/mL (<0.06)
--- NOTE | 2019-04-02 16:13 | EKG ---
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: [place] : 1940 Requested By: Shaista Sequeira Order Number: [id number] MD: Jem Randolph Measurements Intervals [place] Rate: 84 P: 33 ME: 132 QRS: 59 QRSD: 96 T: 57 QT: 374 QTc: 443 Interpretive Statements Sinus rhythm Atrial premature complex RSR' in V1 or V2, right VCD or RVH Compared to ECG 03/27/2019 15:42:17 Atrial premature complex(es) now present Right ventricular hypertrophy now present RSR' in V1 or V2 now present Electronically Signed On 04-02-2019 16:13:14 CDT by Jem Randolph [email or web address] ��������������������������������������������� <ELECTRONICALLY SIGNED> ���������������������������������������� By: Jem Randolph MD ��������������������������������������������� 04/02/19 1613 1521 1521 Jem Randolph MD /EPI
[2019-04-02 16:44] VITALS: BP 111/65
--- NOTE | 2019-04-02 17:40 | NUR ---
1705: Admitted to room 527-B via gerney from [facility], original residence is [facility]. Wearing eye glasses, eye lids fluttery with eye contact, has own teeth, yellow color watch to left wrist. Oriented to name, easily forgets place and time, does not follow verbal instructions to staff regarding to not yell and to not whistle when staff walks out of room. Hydration provided, regular diet tray ordered. Skin w/d, color pink, lung garrett diminished bilat, denies cough, abd round and firm, bowel sounds active to 4 quads, last BM 04/01. Medication list from LTC present, reviewed. 2+ edema noted to BLE, weak lower extremities, unable to assist with lower trunk and extrem movement. Fall risk interventions initiated, non-slip socks on, fall risk arm band and name band placed on pt. Admission assessment completed. Consents reviewed with Sophia Lemon (DPOA/sisiter) permission granted from DPOA via phone, 2 winesses present, see consents.
[2019-04-02 20:13] VITALS: BP 129/65
--- NOTE | 2019-04-02 21:27 | NUR ---
Upon arrival to shift pt was yelling out help me, whistling repetitively. Pt would stop yelling and whistling when distracted by conversation. As soon as staff left room pt's behaviors would return. Pt answers questions and talks with staff but no eye contact. Pt able to state name but did not know location or location. RT assessed pt, o2 sat on RA was 86%, O2 per NC 2l applied and dr notified. Pt compliant with medication, RT tx and hs snack. Pt received first dose of thorazine this chidi. Approximately after an hour from hs meds pt was no longer yelling out or whistling. Pt also received hs dose of lasix. BLE red, dry , thin skin, intact. Pt is incontinent of B&B. Pt also not able to assist with repositioning or lifting his legs. Pt is able to move BUE, feeds self. Pt did have difficulty with swallowing large pills, stated he prefers them crushed.
--- NOTE | 2019-04-03 00:10 | NUR ---
Pt noted to have intact blisters on top of left foot.
--- NOTE | 2019-04-03 01:51 | NUR ---
Pt awakened loudly and repetitively verbalizing help and groaning. Pt offered water, he reported leg discomfort and repositioned. Repetitive verbalizations and groaning not redirectable and prn provided. Prn pain for BLE provided. 02 sat on 2L 98%.
--- NOTE | 2019-04-03 03:39 | NUR ---
Pt is continuing to yell out help and whistle loudly. He is not able to be distracted or verbally redirected. Prn had already been given. Pt stated he wants to go home. Attempted to use lift on pt, size of sling not large enough. Nursing administration notified, will be passed on in report as well. Pt incontinent x 2 at this time.
--- NOTE | 2019-04-03 05:42 | NUR ---
During adl care noted [id number] abrasion on l buttock, reddened scrotum. Barrier cream applied.
--- NOTE | 2019-04-03 07:53 | H ---
[facility] [place] [address] HISTORY AND PHYSICAL Name: DENY FARLEY Room #: 527B-B ADM IN M.R.#: [id number] Admission: 04/02/19 ������������������ Attend Phys: Arley Villaseonr DO Discharge: ������������������ Date of : 44 Report #: [id number] THIS REPORT FOR: //name// CC: Fanta Lemos Arley Villasenor DATE OF SERVICE: 04/02/2019 ATTENDING PHYSICIAN: Arley Villasenor DO HYDROELECTRIC PLANT MECHANICAL ENGINEER: Arley King MD REASON FOR ADMISSION: The patient constantly yelling help, more intensely last several days; whistling; not redirecting. The patient also has an extensive history of dementia and a number of medical problems, namely congestive heart failure, likely obesity hypoventilation syndrome. HISTORY OF PRESENT ILLNESS: This is a 78-year-old obese male being admitted to the Geriatric Psych Unit at [facility]. The patient has had increasingly adverse behaviors over the last 3 weeks, very disruptive to other residents. Of note, on 04/02/2019, sitting in a wheelchair at the nurse's station, started to yell help several times over and over. Staff asked what he needs. "I want sex," he said. Staff educated resident and he was not appropriate. Resident started yelling help and was seen previously all shift either was whistling or yelling help over and over. He has incontinence. It was noted on 03/22/2019, his oxygen saturation dropped to 93%, he was sent out to the Emergency Room and sent back. ROS: 10 point review of systems was done in the emergency room and was negative. Thi demonstartes the patients lack of awareness as his ankles are grossly swollen. PAST MEDICAL HISTORY: According to the [facility], cellulitis of right lower leg, cellulitis of left lower limb, localized swelling mass in the lower limb bilateral, unspecified abdominal hernia without obstruction or gangrene, muscle weakness, abnormalities of gait. MOST RECENT LABORATORY DATA: On 04/02/2019, H and H 12.2 and 36.5, white count 10.5, platelet count 218. Chemistries done today, sodium 140, potassium 4.3, chloride 104, bicarbonate 30, anion gap 8, BUN 34, creatinine 1.4, glucose 111. Lactic acid was done on 01/04/2019. Calcium 8.7, magnesium 2.1, total bilirubin 0.2, AST 16, ALT 29, alkaline phosphatase 54. Troponin less than 0.06. NT-ProBNP was 430, albumin was 2.8, total protein 7.5. UDS today was negative as well as serum alcohol. Urinalysis showed trace of blood, otherwise negative. EKG done today in the ER showed QTC 443, QT 374, SD 132, rate 84, in sinus rhythm. [address] [address] HISTORY AND PHYSICAL Name: DENY FARLEY Room #: 527B-B ADM IN M.R.#: [id number] Admission: 04/02/19 ������������������ Attend Phys: Arley Villasenor DO Discharge: ������������������ Date of : 44 Report #: [id number] MEDICATIONS: At the [facility] included citalopram 20 mg p.o. daily, Depakote DR 500 mg p.o. b.i.d., donepezil 10 mg p.o. daily, Eucerin cream apply to bilateral lower extremities for dry skin, furosemide 80 mg by mouth twice a day, GlycoLax 17 grams by mouth one time a day on odd days for constipation, DuoNeb q. 4 hours p.r.n. shortness of breath, melatonin 5 mg at bedtime, memantine 10 mg b.i.d., potassium chloride 20 mEq by mouth 2 times a day for hypokalemia, risperidone 0.5 mg 2 times a day for depression, trazodone 50 mg by mouth at bedtime. SOCIAL AND DEVELOPMENTAL HISTORY: Raised in [place], got bachelor's degree in [employer]. Served in the [employer], T[employer] at [employer]. Worked for the [employer] in the [employer]. He is . He has 1 adult child. Reportedly, his committed suicide. Denied smoking, alcohol or illicit drugs. Dementia symptoms date back at least 3 years and placement at least a year between. The patient is a poor historian and is unable to give a reliable exam. He did deny SI, HI. Denied auditory, visual, or tactile hallucinations. He is not oriented to place, time and situation. He does recognize his sister. PHYSICAL EXAMINATION: He is nonambulatory, obese, propped upright in bed. This is a well-developed, well-nourished, obese, disheveled male, wearing glasses, appearing at least stated age. Attention limited. Concentration limited. Speech has normal rate. He is whistling abnormally and in an annoying fashion. Mood and affect are congruent and constricted. Denied auditory, visual, or tactile hallucinations. Denied SI, HI. Denied hopelessness, helplessness. Denied homicidal intent or plan. Memory noted to be impaired. Insight limited. Judgment limited. Fund of knowledge well below average. FORMULATION: A 78-year-old obese male admitted to the Geriatric Psych Unit at [facility] for addressing behaviors. 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 PLAN: Discontinue memantine. Discontinue Aricept. Discontinue citalopram. Increase furosemide to 100 mg twice per day for edema. Daily weights. I have ordered p.r.n. albuterol treatments and asked the respiratory therapist to visit him this evening. Continue potassium chloride 20 mEq by mouth 2 times a day for supplementation. Also discontinue the risperidone. I will have Wound Care visit with his legs tomorrow how best to wrap or treat them. ESTIMATED LENGTH OF STAY: Ten to fourteen days. It does look like Dr. Lemos is his primary care physician in the [facility]; [address] [address] HISTORY AND PHYSICAL Name: DENY FARLEY Room #: 527B-B ADM IN [facility].#: [id number] Admission: 04/02/19 ������������������ Attend Phys: Arley Villasenor DO Discharge: ������������������ Date of : 44 Report #: [id number] however, I have consulted the hospitalist to see the patient on this unit. The patient will be a DNR code status. STRENGTHS: He is insured. WEAKNESSES: Advanced dementia, multiple medical problems at least 45 minutes spent with patiwnt in ER and on Geriatric psych unit, review of records, coordination of care and discussion on phone with his sister and SHIRA Cortes. ��������������������������������������������� <ELECTRONICALLY SIGNED> ���������������������������������������� By: Arley Villasenor DO ��������������������������������������������� 04/03/19 0753 [id number] [id number] Arley Villasenor DO /nt
[2019-04-03 08:24] VITALS: BP 135/59
--- NOTE | 2019-04-03 12:50 | NUR ---
PATIENT IN HIS, LYING IN BED; APPEARED SEDATED FROM 3A.M. P.R.N., THORAZINE. PATIENT AWOKE AFTER 9:00 AM, GIVEN BREAKFAST TRAY IN HIS ROOM. ATE ONLY ABOUT ASSUMED PATIENT CARE AT 0700. PATIENT LYING IN BED, DROWSY. DID NOT RECEIVE UNTIL AFTER HE AWOKE MORE, ABOUT 0845. ATE SMALL PERCENT OF BREAKFAST--LESS THAN 25%. ADMINISTERED AM MEDICATIONS AT 0930, WITH EXCEPTION OF DEPAKOTE, ORDER CHANGE. DEPAKOTE SPRINKLES, 750 MG ORDERED TO REPLACE 500 MG TABLET. DROWSY MOOD, FLAT AFFECT, REPEATEDLY CALLING "HELP" AND WHISTLING IF TO CALL A DOG OR BLOW A WHISTLE. ASSISTED UP BY P.T. WITH TRANSFERRING TO W/C FROM BED WITH USE OF A GAIT BELT AND TIMES [address]IST[address] SAT UP IN DR THROUGH PART OF LUNCH; HOWEVER, CONTINUED TO WHISTLE AND CALL HELP. PATIENT MOVED BACK TO HIS ROOM AT 12:30. CONTINUES TO WHISTLE AND CALL FOR HELP. NOTE: PRN THORAZINE 12,5 MG ADMINISTERED AT ABOUT 10:30, NO OBVIOUS EFFECTS.
--- NOTE | 2019-04-03 15:50 | NUR ---
WOUND CONSULT: PT. WAS SEEN TODAY BY DR. ARMAS AND MYSELF. PT. HAS VASCULAR DERMATITIS TO HIS BILATERAL LOWER EXTREMITYS. THERE ARE NO OPEN OR ACTIVE WOUNDS NOTED AT THIS TIME. PT. BILATERAL LOWER EXTREMTIYS ARE ALSO SWOLLEN UPON TODAYS VISIT. RECOMMENDATIONS: AMMONIUM LACATE LOTION TO BLE, THEN APPLICATION OF TUBIGRIPS PT. AND STAFF NURSE WERE INSTRUCTED ON PLAN OF CARE.
--- NOTE | 2019-04-03 22:03 | NUR ---
Upon arrival to shift pt was yelling loudly help me and whistling. Pt was informed that dr said when he started yelling out he would need to have a time out in his room. Pt stated he needed a warning and he would not yell out to remain in the dayroom. When pt was in his room, he was no longer yelling help me or whistling, pt was fidgeting in w/c and whith bedside table quietly. Pt assisted x 3 to bed, radiology did US of kidney's at bedside. Pt compliant with medications and hs snack. O2 94% on RA. Ordered lotion applied to BLE that remain reddened swollen dry skin, sensitive to touch and repositioning. Pt incontinent of bladder x 1, bm smear. Lungs with wheezes insp. Diminished in bases. Blunted affect, glasses, stares straight ahead when talking with staff members.
--- NOTE | 2019-04-04 00:18 | NUR ---
Checked o2 sat while sleeping 94% RA.
--- NOTE | 2019-04-04 04:53 | NUR ---
Pt slept all night, pt was awakened for repositioning and incontinence checks and no episodes of yelling or whistling.
[2019-04-04 05:55] LABS: CALCIUM 9.3 mg/dL (8.5-10.1); CREATININE 1.4 mg/dL (0.7-1.3)
--- NOTE | 2019-04-04 06:15 | NUR ---
Pt awakened this am with yelling help and whistling. Pt is not able to state what he needs help with when asked. Pt did have BM this am.
[2019-04-04 07:27] VITALS: BP 150/64
[2019-04-04 09:53] VITALS: BP 150/64
--- NOTE | 2019-04-04 11:18 | NUR ---
PATIENT HAS BEEN YELLING OUT LOUD "HELP" AND WHISTLING REPEATEDLY. WHEN ASKED WHAT HE NEED HELP WITH, PATIENT STATES "I DON'T KNOW WHAT I NEED, I AM ABSENTMINDEDLY SAYING HELP. IT'S A FORCE OF HABIT". PATIENT REDIRECTED THAT HIS YELLING IS DISRUPTIVE TO OTHER PATIENTS, " I DON'T CARE". MORNING MEDICATION ADMINISTERED TO PATIENT IN HIS ROOM, HE TOOK ALL MORNING MEDICATION WITH LOTS OF ENCOURAGEMENT FROM STAFF. PATIENT IS NOW UP IN WHEEL CHAIR WITH ASSIST OF THREE STAFF, THIS INCLUDES DR. DENNISON. PATIENT CONTINUE TO YELL "HELP". STRESS BALL GIVEN TO PATIENT TO SQUEEZ IN ORDER TO DISTRACT HIM FROM YELLING OR WHISTLING, IT SEEM TO HELP SOME, BUT HE GOES RIGHT BACK TO SCREAMING. PATIENT HAD LARGE SOFT, BOWEL MOVEMENT THIS MORNING. GOOD PERICARE GIVEN BY STAFF, BARRIER CREAM APPLIED. BILATERAL LOWER EXTREMITY REMAIN WITH REDNESS, AMONIA ACETATE APPLIED PER ORDER. PATIENT IS CURRENTLY IN DAYROOM PLAYING PUZZLE WITH RECREATIONAL THERAPIST, THIS SEEM TO DISTRACT PATIENT FROM YELLING. PATIENT DENIES SUICIDAL/HOMOCIDAL IDEATIONS, WOULD NOT RESPOND APPROPRIATELY TO OTHER ASSESSMENT QUESTIONS. 02 SAT THIS MORNING WAS 92% RM AIR. NO SIGN OF ACUTE DISTRESS NOTED, WILL CONTINUE TO REDIRECT, AND MONITOR FOR SAFETY.
[2019-04-04 20:22] VITALS: BP 124/62
--- NOTE | 2019-04-04 21:38 | NUR ---
PT IN BED AT [facility]. PERIODICALLY CALLING OUT HELP AND WHISTLING. RESPONDS TO REDIRECTION WITH I'M SORRY, BUT BEHAVIOR CONTINUES. REFUSED TO TAKE HS MEDS PO.
[2019-04-04 22:14] VITALS: BP 124/62
--- NOTE | 2019-04-05 03:40 | NUR ---
PT CONTINUES TO CALL FOR HELP OR WHISTLE REPEATEDLY. INCONTINENT OF URINE AND STOOL X2 TONIGHT. C/O NOT HAVING UNDERWEAR OR A BRIEF. C/O SOME LEFT HIP PAIN, BUT WHEN OFFERED PAIN MED REFUSED. INITIALLY REFUSE HS MEDS, BUT EVENTUALLY TOOK THORAZINE, MELATONIN AND TRAZADONE WITH SOME ICE CREAM. HAS NOT SLEPT AT ALL UP TO THIS POINT.
[2019-04-05 07:50] VITALS: BP 117/65
--- NOTE | 2019-04-05 12:44 | NUR ---
PSYCHOSOCIAL ASSESSMENT Diagnosis: BEHAVORIAL CHANGES,BALBINA,FOOT PAIN Admit Date: 04/02/19 Psychiatrist: JOEL Symptoms associated with current admission: Violence/aggression Others Presenting problems: Pt was making inappropriate comments. Pt was shown aggression, and agitation to nursing staff. Precipitating Factors: Non-compliance psychothx Non-compliance medication Comments: Pt was making a whistling noise, and hollering help towards staff. History of High Risk Behavors: Hx violence/aggression Suicide Risk Factors: D A-Signs of alcohol/substance abuse w/ suicide ideation B-Recent suicidal thoughts or attempts C-Recent thoughts or attempts of harming someone else D-Altered mental status due to psychiatric/chem dep etiology E-The behavior exists - add comment PSYCHIATRIC HISTORY Age of onset: 78 Prior hospitalizations: 1-2 times hospitalized Hospital names and dates, if available: July 2018 [facility] Most Recent Outpatient HX: Additional information: Legal Status: Voluntary Guardian/Conservatorship type: DPOA Contact name: Kaila Medina Contact phone: [phone] Other: Name: Phone: Other legal issues: (Arrests/convictions Current Status) None P.O. Name and Phone #: FAMILY HISTORY Place of : [facility] Raised in: [facility] # Siblings & order: Describe relationships within family of origin: Pt has three sibilings, and one of the sister last year 2017. d Any psychiatric or substance abuse problems within family of origin: Y Has patient been sexually or physically abused, neglected or been taken advantage of financially? N Has the abuse been reported? N Other pertinent family information: Marital history/significant relationships: Domestic violence: N Children ages & who is caring for them: Pt has one adult daughter in [place] Is child welfare involved? N Drug history: None Alcohol Use: Frequency: Quantity: Have you ever felt you ought to Cut down on drinking? Have people Annoyed you by criticizing your drinking? Have you ever felt bad or Guilty about your drinking? Have you ever had a drink first thing in the morning to steady your nerves/get rid of a hangover(Eye qa test lead) CAGE TOTAL 0 If CAGE score is 3 or more, notify provider for withdrawal orders! AXIS SCREENING TOOL [place] I Mood Disorders: Anxiety Disorder [place] II Personality/Mental Retardation: [place] III Medical Impairment: Alzheimer's [place] IV Problem(s) with: Health care services [place] V: 50-Serious w/impairment Additional [place] comments: PERSONAL BACKGROUND Relevant cultural issues (ethnicity, values, beliefs, spiritual): Not spirtiual Restorationist: Importance of taoism to patient: Unmet spiritual needs What hobbies/interests does the patient have? Sexual orientation (relevant impact to current treatment): Heterosexual : Where did you serve: Branch of service: [employer] Rank: Discharge status: Honorable Are you a combat ? N Occupational/Work: Do you work? N Do you want to work? N How many hours do you work/week? 0 How many jobs have you had in the past 5 years? 0 Do you need assistance finding a job? N Does the patient need assistance in job training? N Source of income[place] Does patient have a Payee? Y Payee name: Kaila Medina Approximate monthly income: 2500 Does patient have adequate funds for next 30 days? Y Education background: Bachelor degree Highest grade completed: 12th Grade Other Educational/training programs: Civil Engineering Functional deficits: Yes, see explain Explain functional deficits: Concentration Memory Frustration Tolerance Orientation/Thought Organization Impulse Control Communication Skills Current living situation: Facility (B&C, SNF,ILF) Address/phone where pt. is living: [facility] Does the patient plan to continue there after DC? Yes Patient lives with: Unrelated adult Will family/significant other be involved in treatment? Other community support services utilized: Pt will need an [employer] Available (family/friend) Name: Kaila Medina Relationship: Sister Name: Phone: Relationship: Name: Phone: Relationship: Patient strengths: Family support Education Insight Patient's assets: Positive support system Verbal Patient's weaknesses: Health problems Chronic hx mental illness Poor social skills Additional weaknesses: Pt makes inappropriate comments that are sexual to nursing. Patient's perception of current social insurance administrator/case management needs: Pt sister stated a SS is someone who assist with the care PRELIMINARY DISCHARGE PLAN Discharge plan/Community resource contacts: Pt will be discharge to [facility] Discharge needs: Pt will need to be transported to . Problems anticipated on discharge: Compliance w/ med regimen Comments: (factors affecting DC plan/pt. response/interventions) Pt will be discharge to [facility].
--- NOTE | 2019-04-05 14:13 | NUR ---
WOUND FOLLOW UP: PT. WAS SEEN TODAY BY DR. ARMAS AND MYSELF. PT. BLE ARE CLINICALLY BETTER THAN LAST VISIT. PT. IS PROGRESSING TOWARDS GOALS. RECOMMENDATIONS: CONTINUE WITH CURRENT PLAN OF CARE. PT. AND STAFF NURSE WERE INSTRUCTED ON PLAN OF CARE.
--- NOTE | 2019-04-05 14:28 | HC ---
[facility] [place] [address] CONSULTATION Name: DENY FARLEY Room #: 527B-B ADM IN M.R.#: [id number] Admission: 04/02/19 ������������������ Attend Phys: Arley Villasenor, Discharge: ������������������ Date of : 42 Report #: [id number] THIS REPORT FOR: //name// CC: Fanta Villasenor DATE OF SERVICE: 04/03/2019 CHIEF COMPLAINT: Lower extremity dermatitis. 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 The patient was noted to have significant swelling and redness and scaling of his legs. We have been asked to see him with regard to wound care. Of note, I saw him in December of 2018 for cellulitis of the bilateral lower extremities. He is unable to provide lot of information about himself. He frequently whistles and calls for help. PAST MEDICAL HISTORY: Positive history of myasthenia gravis, dementia with behavioral disturbance, depression, benign prostatic hypertrophy and history of delirium. MEDICATIONS: Include calcium with vitamin D, citalopram, Depakote, Aricept, vitamin D, furosemide, Namenda, potassium chloride, risperidone. ALLERGIES: None. SOCIAL HISTORY: The patient lives in a detention facility. No history of alcohol or tobacco use. FAMILY HISTORY: Noncontributory. REVIEW OF SYSTEMS: Not obtainable due to the patient's uncooperativeness. He does note that he does have some swelling on his legs. PHYSICAL EXAMINATION: VITAL SIGNS: At this time include temperature 99.5, pulse 76, respiratory rate 16, and blood pressure 135/59. GENERAL: This is a chronically ill-appearing male patient who appears to be in minimal distress. HEENT: Head normocephalic. Nose and throat clear. NECK: Supple. LUNGS: Clear. HEART: Regular. ABDOMEN: Soft. Bowel sounds present. EXTREMITIES: Lower extremities demonstrate 2-3+ edema and mild erythema, most [facility] [address] [place] [address] CONSULTATION Name: DENY FARLEY Sherif Room #: 527- ADM IN M.R.#: [id number] Admission: 04/02/19 ������������������ Attend Phys: Arley Villasenor DO Discharge: ������������������ Date of : 42 Report #: [id number] likely on the basis of stasis dermatitis. There is some scaling, but really no open ulceration at this time. CLINICAL IMPRESSION: 1. Lymphedema to the lower extremities. 2. Venous dermatitis, bilateral lower extremities. RECOMMENDATIONS: At this point in time, I do not think he needs any systemic antibiotic therapy at this time. We will recommend AmLactin lotion to be applied daily and then we will try Tubigrip stockings to see if we can better control his edema. It would be benefited by elevation of his legs; however, he is not that cooperative with positional changes. We will continue to follow him here. We may need to increase the compression with Kerlix and Caden wraps. We will start with a Tubigrip for now. I do not think he requires lymphedema therapy at present, we will continue to follow closely. I have discussed this with the lymphedema therapist as well. ��������������������������������������������� <ELECTRONICALLY SIGNED> ���������������������������������������� By: Pablito Caba MD ��������������������������������������������� 04/05/19 1428 2201 [id number] Pablito Caba MD /nt
--- NOTE | 2019-04-05 15:35 | NUR ---
DR. MALDONADO INCREASED PATIENT'S CHLORPRAMAZINE TO 37.5 MG PO FROM 25 MG PO. ADMINISTERED FIRST DOSE AT 1500. PATIENT HAS BECOME LESS VERBAL SINCE THAT TIME. CONTINUE TO MONITOR.
[2019-04-05 21:39] VITALS: BP 117/66
--- NOTE | 2019-04-06 03:14 | NUR ---
ASSUMED CARE @ 19:15, IN BED EYES OPEN, CONFUSION NOTED. A&OX2, DISORIENTED TO PLACE, SITUATION AND TIME. LOWER EXTREMITIES EDEMETOUS, RED AND TENDER. 2100 MEDICATION GIVEN WITH PUDDING AND WATER. NON STOP LOUD, SHRILL WHISTLING AND CALLING OUT HELP, HELP. REDIRECTION AND EDUCATION UNSUCCESSFUL. WILL CONTINUE TO MONITOR. PRN PO THORAZINE PROVIDED ALONG WITH 650 MG TYLENOL AND CEPOCOL COUGH DROP FOR WHISTLING&YELLING, LEFT HIP PAIN OF 6/10, AND SORE THROAT.
--- NOTE | 2019-04-06 03:23 | NUR ---
5 MG OFIM OLANZAPINE PROVIDED FOR BEHAVIORS DISTURBING THE MILIEU @ 02:45. WUKK CONTINUE TO MONITOR.
--- NOTE | 2019-04-06 06:28 | NUR ---
ALLOWED US TO TURN OFF THE OVERHEAD ROOM LIGHT, BEGAN TO SLEEP AFTER IM INJECTION. GIVEN INCONTINENT CARE OF BLADDER. SLEPT A TOTAL OF 8.8 HOURS.
--- NOTE | 2019-04-06 09:08 | NUR ---
ASSUMED PATIENT CARE AT 0700; PATIENT OBSERVED LYING IN BED, SUPINE POSITION, DROWSY. VITAL SIGNS AT 0800: 108/77, R16, MA 91, O2 95%.
--- NOTE | 2019-04-06 09:12 | HC ---
[facility] [address] CONSULTATION Name: DENY FARLEY Room #: 527B-B DIS IN M.R.#: [id number] Admission: 04/02/19 ������������������ Attend Phys: Arley Villasenor, Discharge: 04/06/19 ������������������ Date of : 42 Report #: [id number] THIS REPORT FOR: //name// CC: Fanta Villasenor ____ ____ DATE OF SERVICE: 04/04/2019 INTRODUCTION: The patient is a 78-year-old male who is being seen at [facility] for care of his feet. The patient has been admitted to the Behavioral Psych floor. He has had difficulty caring for his feet in the past and is being seen for general podiatric consultation. PAST MEDICAL HISTORY: His past medical history with regard to this consultation includes a history of severe lower extremity lymphedema. He had no other foot related complications. His pedal exam reveals dorsalis pedis and posterior tibial pulses that are not easily palpable due to edema; however, his capillary refill time is within normal limits. Neurologically, the patient is grossly intact to sensory stimulus including sharp, dull, proprioceptive and vibratory sensations. Dermatologic exam reveals profound lower extremity edema with erythema of both lower legs, induration of the skin and classic features of chronic sequela associated with lower extremity edema. His feet demonstrate no acute dermatologic findings. His nails are thickened and elongated, clinically consistent with onychomycosis in varying degrees and clearly not been attended to for many months. There are no acute findings with regard to his pedal exam. His nails were debrided. No additional treatment was required. No additional pathology was identified. IMPRESSION: 1. Onychomycosis with onychodystrophy, bilateral feet. 2. Severe lower extremity edema. PLAN: The patient's nails were debrided for him. We discussed general foot hygiene. No further treatment was required. It has been a pleasure about having the opportunity to care for the patient. I am pleased to follow up with him upon request. ��������������������������������������������� <ELECTRONICALLY SIGNED> ���������������������������������������� By: Norberto Bedoya DPM ��������������������������������������������� 04/06/19 0912 [id number] Norberto Bedoya DPM /lisa
== END 2019-04-06 09:06 | DRG 56 ==
LOC: ER 15:09 → SBH 15:53 → EROBS 15:53 → SBH 16:43
PROVIDERS: Hospitalist; Nurse Practitioner Family; ADMIT Psychiatry & Neurology Psychiatry
PROC: 0HBRXZZ Excision of Toe Nail, External Approach (ICD-10-PCS; principal; 2019-04-04)
DX: G30.9 Alzheimer's disease, unspecified (principal); J96.01 Acute respiratory failure with hypoxia; Z68.41 Body mass index [BMI] 40.0-44.9, adult; N17.9 Acute kidney failure, unspecified; J98.11 Atelectasis; F02.81 Dementia in other diseases classified elsewhere, unspecified severity, with behavioral disturbance; N40.0 Benign prostatic hyperplasia without lower urinary tract symptoms; G70.00 Myasthenia gravis without (acute) exacerbation; I87.2 Venous insufficiency (chronic) (peripheral); F32.9 Major depressive disorder, single episode, unspecified; I89.0 Lymphedema, not elsewhere classified; B35.1 Tinea unguium; E66.01 Morbid (severe) obesity due to excess calories; Z79.899 Other long term (current) drug therapy; Z88.0 Allergy status to penicillin; Z88.1 Allergy status to other antibiotic agents; Z88.8 Allergy status to other drugs, medicaments and biological substances
CPT/HCPCS: 10880

== ENCOUNTER 2019-04-06 09:19 | Inpatient (IN) | payer OTHER ==
[~2019-04-06] VITALS: Ht 167.6 cm; Wt 121.6 kg
--- NOTE | ~2019-04-06 | HC ---
[facility] [place] [address] CONSULTATION Name: DENY FARLEY Room #: 360-[facility] IN M.R.#: [id number] Admission: 04/06/19 ������������������ Attend Phys: Arley King MD Discharge: 04/11/19 ������������������ Date of : 42 Report #: [id number] THIS REPORT FOR: //name// CC: Fanta King PALLIATIVE CARE CONSULTATION REQUESTING PHYSICIAN: Dr. King. CHIEF COMPLAINT: Dysphagia. HISTORY OF PRESENT ILLNESS: The patient is a 78-year-old male who presented initially to Behavioral Health Unit at [facility]. The patient had presented on 04/01/2019 and subsequently after 5 days of being on that floor, transferred for acute respiratory failure which due to aspiration pneumonia. Currently over the last day and a half, he expressed his adamancy stating that he did not want to have a feeding tube. The patient has expressed this to his sister, who is his durable power of rubber goods cutter finisher. The patient had clearly to her in the past that he did not want to be on a ventilator and he is currently DNR status. At this current point in time, he does express to me that he does not want feeding tube as he has failed his video swallow test for multiple consistencies. The patient would like to have normal p.o. intake; however, he also does not understand that he has had significant dysphagia; believes that he will improve if he is just allowed to eat or drink normal foods. The patient does not change on this overall belief after discussion with me and even with him approximately 2-3 minutes after discussion of the overall condition that caused him to not be able to take in p.o. intake. The patient does not demonstrate capacity for this decision and/or for decisions with regards to his overall advanced directive. He denies significant concerns, other than that he is wanting food and drink. Certainly, he reports cough and phlegm. PAST MEDICAL HISTORY: Significant for congestive heart failure, history of recurrent bilateral lower extremity cellulitis and possible myasthenia gravis. Certainly, he has dementia per his sister's report, dysphagia and also aspiration pneumonia. MEDICATIONS: Depakote 750 mg b.i.d. and Thorazine 37.5 mg t.i.d. FAMILY HISTORY: Noncontributory at this time. SOCIAL HISTORY: Sister, Sophia, is durable power of rubber goods cutter finisher. Previously a resident of [facility], where he was a resident at a long-term care. He was able to self-propel with wheelchair prior to this, but had severe with his dementia and was sometimes aggressive towards staff. [address] [address] CONSULTATION Name: DENY FARLEY Room #: 360-[facility] IN ..#: [id number] Admission: 04/06/19 ������������������ Attend Phys: Arley King MD Discharge: 04/11/19 ������������������ Date of : 42 Report #: [id number] ALLERGIES: PENICILLIN, TETRACYCLINE AND HYDROCODONE. REVIEW OF SYSTEMS: Again, as stated per HPI. CONSTITUTIONAL: He denies a current feeling of fever. Denies chills. CARDIOVASCULAR: Denies chest pain or palpitations. RESPIRATORY: Does report cough. Does report shortness of breath. Does have oxygen in place at this time. GASTROINTESTINAL: The patient reports a desire to eat. Denies any other concerns in this area. PHYSICAL EXAMINATION: VITAL SIGNS: Temperature 37.4, pulse 69, respirations 28, blood pressure 143/69 and 97% on room air. The patient is on nasal cannula. GENERAL: The patient is alert. He is oriented to self. He is in no acute distress. HEENT: Extraocular muscles appear to be intact. He has no scleral icterus. No conjunctival injection. CARDIOVASCULAR: Tachycardic during my auscultation, but irregular only to approximately 90 respirations without tachypnea. He does have some diffuse coarse rales noted. ABDOMEN: Soft, nontender to palpation. No S4. EXTREMITIES: He does have lower extremity edema, which is approximately 3+. LABORATORY DATA: He had white blood cells 12.2, hemoglobin 11.1. Creatinine 1.1. ASSESSMENT AND PLAN: 1. Dysphagia. Again, I had an extensive discussion of approximately 35 minutes on the advanced care planning with sister who is his durable power of rubber goods cutter finisher and his decision maker at this current point in time, as the patient is not of capacity to make his own decisions; the patient demonstrated that on my initial interview. He may in the future regain capacity, but this is doubtful given the level of his dementia. Certainly, I discussed with her that the progression of his dementia has possibly led to his aspiration and this leads to an overall poor prognosis. Both the patient and sister agree that they would like him to have p.o. intake. They are both amenable to pureed and nectar-thick diet, which I think would allow for some level of comfort. I have advanced his diet to this. Additionally, I have discussed code status and confirmed his DNR status. Additionally, I have discussed the possibility of hospice with the patient's sister. She is amenable to evaluation for this and to return to his long-term care, which I think would be a good scenario overall for his future care and palliative overall. The patient appears to be within a reasonable means of comfort at this time, likely could transfer at any time back to facility. I did explain the overall risk is high of recurrent aspiration pneumonia and related to this. She is understanding of this. 2. Aspiration pneumonia. As per previous, the patient continues to be at high [facility] [address] [place] [address] CONSULTATION Name: UZMA FARLEYJACK Gorman Room #: 360-P [facility]#: [id number] Admission: 04/06/19 ������������������ Attend Phys: Arley King MD Discharge: 04/11/19 ������������������ Date of : 42 Report #: [id number] risk for recurrence of this even with treatment at this time. 3. Dementia, appears to be moderate to severe. Given this, I think he is a good candidate for overall hospice care. Again, I think the patient can likely return to his facility with the care of hospice. I have discussed this with the primary team and with social worker clinical and with the patient and the patient's sister, who are all amenable. Thank you very much for your consultation. ��������������������������������������������� ���������������������������������������� By: ��������������������������������������������� [id number] Fly Potts DO /nt
[~2019-04-06 09:19] MED LIST changes: +ARICEPT 5 MG TAB5 MG PO; +EUCERIN CREME57 GM TOP; +GLYCOLAX119 GM PO; +IPRAT-ALBUT 0.5-3 ML INH; +LASIX 80 MG TAB80 MG PO; +TRAZODONE HCL50 MG PO; +TYLENOL EXTRA500 MG PO
[2019-04-06 09:28] LABS: BE(vivo) -2.4 mmol/L (-2 to +3); HCO3 22.7 mmol/L (22.0-26.0); PCO2 40.1 mmHg (35.0-45.0); sO2 96.3 % (92.0-98.0)
[2019-04-06 09:31] LABS: ABSOLUTE NEUTROPHILS 13.9 thou/uL (1.4-8.2); BASOPHILS 0.3 % (0.0-2.0); EOSINOPHILS 3.4 % (0.0-3.0); HEMATOCRIT 36.6 % (42.0-52.0); HEMOGLOBIN 12.2 gm/dL (14.0-18.0); MCH 30.6 pg (26.0-34.0); MCHC 33.3 g/dL (28.0-37.0); MCV 91.9 fL (80.0-100.0); MONOCYTES 7.3 % (1.0-8.0); PLATELET COUNT 197 thou/uL (150-400); RBC 3.99 mil/uL (4.50-6.00); RDW 15.1 % (10.5-14.5); WBC 18.3 thou/uL (4.0-11.0)
[2019-04-06 09:37] LABS: CREATININE 1.3 mg/dL (0.7-1.3); POTASSIUM 4.2 mmol/L (3.5-5.1)
[2019-04-06 09:55] VITALS: BP 159/64
[2019-04-06 11:25] VITALS: BP 134/81
[2019-04-06 15:59] VITALS: BP 152/65
[2019-04-06 21:00] VITALS: BP 100/45
[2019-04-07] VITALS (8 sets, daily range): BP systolic 102–146; BP diastolic 53–70
[2019-04-07 05:07] LABS: HEMATOCRIT 33.5 % (42.0-52.0); HEMOGLOBIN 11.1 gm/dL (14.0-18.0); MCH 30.2 pg (26.0-34.0); MCHC 33.1 g/dL (28.0-37.0); MCV 91.3 fL (80.0-100.0); RBC 3.67 mil/uL (4.50-6.00); RDW 15.2 % (10.5-14.5); WBC 12.2 thou/uL (4.0-11.0)
[2019-04-07 05:28] LABS: CALCIUM 8.4 mg/dL (8.5-10.1); CREATININE 1.1 mg/dL (0.7-1.3)
--- NOTE | 2019-04-07 15:24 | HC ---
[facility] [place] [address] CONSULTATION Name: DENY FARLEY Room #: 360-P [facility] IN M.R.#: [id number] Admission: 04/06/19 ������������������ Attend Phys: Arley King MD Discharge: ������������������ Date of : 42 Report #: [id number] THIS REPORT FOR: //name// CC: Fanta King DATE OF SERVICE: 04/06/2019 ATTENDING PHYSICIAN: Arley King MD. CONSULTING PSYCHIATRIST: Arley Villasenor DO. REASON FOR CONSULTATION: The patient was emergently transferred from the [facility] Unit to [facility], room 360 for respiratory distress, hypoxia. HISTORY OF PRESENT ILLNESS: This is a 78-year-old morbidly obese male who has been in the [facility] Unit for roughly 5 days. The patient apparently this morning was found in respiratory distress, short of breath. Hospitalist evaluated the situation, increased him to 5 liters of oxygen and moved [facility] to [facility]. It is unclear to me if he had been on any supplemental oxygen overnight at [facility]; however, the patient had been requiring oxygen earlier in the admission. The patient had improved to some degree. His main target symptoms had been yelling "help," whistling, irritability. I had visited with the patient's sister and decision maker a day or two ago myself. On bedside exam, the patient is pleasant. He is not really whistling or asking for help. He is not oriented to time or place. He says he is at the "[facility]." The patient denied nausea, vomiting, fever, diarrhea or chills. Did report some shortness of breath. Dr. King's note who saw him about an hour earlier than me found that he was not cooperative with comprehensive review of systems, which was true for me as well. MEDICAL PROBLEMS: Acute kidney injury, history of cellulitis both lower extremities, gross lymphedema, dyspnea, foot pain and hypoxia. ALLERGIES: HYDROCODONE, PENICILLINS AND TETRACYCLINES. CURRENT MEDICATIONS: Depakote 750 mg twice a day, had been on Thorazine 37.5 mg 3 times a day that was stopped when he was moved to the Medical Unit. Also, earlier in the admission, I discontinued his cognitive enhancers. PAST MEDICAL HISTORY: Congestive heart failure, bilateral lower extremity cellulitis, myasthenia gravis, appearing not be symptomatic. SOCIAL HISTORY: No recent alcohol, tobacco or illicit drugs. PHYSICAL EXAMINATION: [facility] [address] [place] [address] CONSULTATION Name: DENY FARLEY Room #: 360-P [facility] IN [facility]#: [id number] Admission: 04/06/19 ������������������ Attend Phys: Arley King MD Discharge: ������������������ Date of : 42 Report #: [id number] LUNGS: Coarse crackles, diminished breath sounds. EXTREMITIES: 2+ lower extremity edema, erythema bilaterally diagnosed with stasis dermatitis. VITAL SIGNS: This morning it was around 10:30 a.m. when I saw him. Temperature 98.9, pulse 95, respirations 24, BP 159/64, O2 sat 96%. MUSCULOSKELETAL: Nonambulatory, patient was at 45 degree angle or so in bed. MENTAL STATUS EXAM: This is a well-developed, well-nourished, morbidly obese appearing male wearing glasses. Attention limited. Concentration limited. Speech slow and deliberate. Thought process linear and limited. Thought content, relative poverty of thought. No psychomotor agitation. No psychomotor retardation. Mood and affect were congruent and constricted. No auditory, visual, or tactile hallucination. Denied suicidal intent or plan. Denied helplessness, hopelessness. Denied homicidal intent or plan. Memory noted to be impaired. Insight limited. Judgment limited. Fund of knowledge well below baseline. FORMULATION: A 78-year-old morbidly obese male showing signs of respiratory distress, cannot exclude aspiration pneumonia. The patient had been admitted from the psychiatric standpoint for major neurocognitive disorder with behavioral disturbance. RECOMMENDATIONS: Agree with no antipsychotics at this time, would____ continue Depakote 750 mg b.i.d. I think it is okay to continue the Tenex 2.5 mg twice a day as long as the patient does not go into shock. It should be noted that continuing his oxygen by nasal cannula, there is an exclusion criteria if it is [facility]. If the patient does not have any major psychiatric concerns and is medically stable, he can return to the [facility] on this coming 04/08/2019. I have discussed the case with Dr. King. If consultation is needed on 04/07/2019, should be called on my cell phone. Time spent on review of records, coordination of care of this patient was approximately 45 minutes. Greater than 50% of time was spent in review of records, coordination of care. I asked the nurse to call his daughter, Sophia, that is a nurse on med/tele. ��������������������������������������������� <ELECTRONICALLY SIGNED> ���������������������������������������� By: Arley Villasenor DO ��������������������������������������������� 04/07/19 1524 [id number] Arley Vilalsenor DO /nt
[2019-04-08 04:00] VITALS: BP 142/73
[2019-04-08 07:25] VITALS: BP 134/79
[2019-04-08 16:28] VITALS: BP 128/76
[2019-04-08 19:13] VITALS: BP 135/67
[2019-04-09 03:41] VITALS: BP 119/56
[2019-04-09 07:35] VITALS: BP 106/60
[2019-04-09 11:42] VITALS: BP 110/63
[2019-04-09 16:50] VITALS: BP 138/63
[2019-04-09 19:52] VITALS: BP 158/81
[2019-04-10 03:59] VITALS: BP 159/92; BP 182/83
[2019-04-10 07:27] VITALS: BP 132/67
[2019-04-10 11:08] VITALS: BP 125/71
[2019-04-10 16:08] VITALS: BP 121/68
[2019-04-10 19:22] VITALS: BP 132/79
[2019-04-11 04:47] VITALS: BP 149/63
[2019-04-11 07:51] VITALS: BP 126/60
[2019-04-11 11:44] VITALS: BP 143/69
== END 2019-04-11 18:10 | DRG 177 ==
LOC: 3W 09:19 → ICU 04-07 10:19 → 3W 04-07 11:58
PROVIDERS: ADMIT Hospitalist
DX: J69.0 Pneumonitis due to inhalation of food and vomit (principal); J96.01 Acute respiratory failure with hypoxia; F20.0 Paranoid schizophrenia; F01.51 Vascular dementia, unspecified severity, with behavioral disturbance; F02.81 Dementia in other diseases classified elsewhere, unspecified severity, with behavioral disturbance; Z68.41 Body mass index [BMI] 40.0-44.9, adult; I13.0 Hypertensive heart and chronic kidney disease with heart failure and stage 1 through stage 4 chronic kidney disease, or unspecified chronic kidney disease; I50.9 Heart failure, unspecified; R13.10 Dysphagia, unspecified; N18.9 Chronic kidney disease, unspecified; I87.2 Venous insufficiency (chronic) (peripheral); D72.829 Elevated white blood cell count, unspecified; Z66 Do not resuscitate; R41.0 Disorientation, unspecified; G30.9 Alzheimer's disease, unspecified; E66.9 Obesity, unspecified; G47.00 Insomnia, unspecified; Z51.5 Encounter for palliative care; Z88.6 Allergy status to analgesic agent; Z88.1 Allergy status to other antibiotic agents; Z88.0 Allergy status to penicillin; Z79.899 Other long term (current) drug therapy
CPT/HCPCS: 10080; 10879